=== PATIENT | female | born 1950 | race Asian ===

== ENCOUNTER 2019-06-16 15:34 | Emergency (ER) | payer MEDICARE, OTHER, SELFPAY ==
[2019-06-16 15:42] VITALS: BP 154/93; PULSE 71; RESP 18; TEMP 36.8; O2SAT 100
--- NOTE | 2019-06-16 15:55 | DI.RAD.S_ITS ---
PROCEDURE: XR ELBOW RT MIN 3V INDICATIONS: fall, struck left face and left side of head TECHNIQUE: 3 views of the elbow were acquired. COMPARISON: None. FINDINGS: Bones: No displaced fractures or dislocations. No suspicious bony lesions. [id number] degenerative changes of the elbow joint are present. Soft tissues: No elbow joint effusion. No suspicious soft tissue calcifications. IMPRESSION: No displaced right elbow fractures. Dictated by: Hernan Martinez M.D. on 06/16/2019 at 16:01 Approved by: Hernan Martinez M.D. on 06/16/2019 at 16:03
--- NOTE | 2019-06-16 15:55 | DI.RAD.S_ITS ---
PROCEDURE: XR HAND LT MIN 3V INDICATIONS: fall, struck left face and left side of head TECHNIQUE: 3 views of the hand(s) acquired. COMPARISON: None. FINDINGS: Bones: No displaced fractures or dislocations are identified. There are moderate to severe degenerative changes of the small joints (metacarpophalangeal and interphalangeal joints). No suspicious osseous lesions are identified. Soft tissues: Scattered calcifications along the dorsal margins of a few of the proximal interphalangeal joints and metacarpophalangeal joints are present. Soft tissue swelling about several joints of the hand are present. There is a rounded ossific/calcific density along the volar aspect of the hand underlying the 4th metacarpal base. IMPRESSION: 1. No displaced left hand fractures. 2. Soft tissue swelling of the hand. 3. Rounded ossific/calcific density on the volar aspect of the 4th metacarpal base may represent a foreign body. Please correlate clinically. 4. Prominent degenerative changes of the hand with associated scattered areas of chondrocalcinosis. Dictated by: Hernan Martinez M.D. on 06/16/2019 at 15:57 Approved by: Hernan Martinez M.D. on 06/16/2019 at 15:59
--- NOTE | 2019-06-16 15:55 | DI.RAD.S_ITS ---
PROCEDURE: XR WRIST LT MIN 3V INDICATIONS: fall, struck left face and left side of head TECHNIQUE: 4 views of the wrist were acquired. COMPARISON: None. FINDINGS: Bones: No displaced fractures or dislocations of the left wrist are identified. No suspicious osseous lesions are present. There is mild ulnar positive variance with moderate degenerative changes of the distal radial ulnar joint. There also are moderate degenerative changes noted involving the basal joint of the thumb and at the metacarpal phalangeal joints. Subtle soft tissue calcifications about some of these joints probably is related to chondrocalcinosis or chronic degenerative change. Soft tissues: No suspicious soft tissue calcifications. Soft tissue swelling about the metacarpophalangeal joints and about the wrist is present. There is a rounded ossific/calcific density on the volar aspect of the hand that is positioned at the level of the base of the 4th metacarpal, which could potentially represent a foreign body. IMPRESSION: 1. No displaced acute left wrist fractures. 2. [id number]-[id number] degenerative changes of the wrist. 3. Rounded ossific/calcific density along the volar aspect of the base of the 4th metacarpal may represent a foreign body. Please correlate clinically. Dictated by: Hernan Martinez M.D. on 06/16/2019 at 15:55 Approved by: Hernan Martinez M.D. on 06/16/2019 at 15:57
--- NOTE | 2019-06-16 15:55 | DI.CT.S_ITS ---
PROCEDURE: CT FACIAL BONES WO CON INDICATIONS: fall, struck left face and left side of head TECHNIQUE: Noncontrast 2.5 mm thick axial images acquired from the mandible through the frontal sinuses, with coronal and sagittal reformatting. For radiation dose reduction, the following was used: automated exposure control, adjustment of mA and/or kV according to patient size. COMPARISON: [facility], CT, CT CERVICAL SPINE WO CON, 06/16/2019, 15:59. FINDINGS: Image quality: Excellent. Bones and teeth: Orbital benavides are intact. Sinus benavides show no fracture or deformity. Nasal bones and septum are intact. Visualized portions of the mandible demonstrate no fractures or subluxation. Zygomatic arches are intact. Pterygoid plates are intact. Visualized portions of the skull base and auditory canals are intact. Severe bilateral TMJ degenerative change. No upper teeth present. Metallic artifact makes it difficult to evaluate the lower tooth structures. As is reported in the cervical spine CT, there is marked cervical bony canal stenosis. Sinuses: Paranasal sinuses are aerated, without fluid levels, mucosal thickening, or mucoceles. Mastoid air cells are aerated. Soft tissues: No edema, masses, or fluid collections. No enlarged lymph nodes. No soft tissue lacerations or debris. Vascular: Visualized vascular structures appear normal in the absence of contrast. Bony vascular foramina and canals are intact. IMPRESSION: 1. No displaced facial bone fracture or mandibular fracture. 2. Severe bilateral TMJ degenerative change. 3. Marked cervical canal stenosis. Please refer to a separate CT cervical spine report. Dictated by: Tadeo Lopez M.D. on 06/16/2019 at 16:42 Approved by: Tadeo Lpoez M.D. on 06/16/2019 at 16:46
--- NOTE | 2019-06-16 15:55 | DI.CT.S_ITS ---
PROCEDURE: CT HEAD/BRAIN WO CON INDICATIONS: fall, struck left face and left side of head TECHNIQUE: Noncontrast 4.5 mm thick angled axial sections acquired from the foramen magnum to the vertex, with coronal and sagittal reformats. For radiation dose reduction, the following was used: automated exposure control, adjustment of mA and/or kV according to patient size. COMPARISON: None. FINDINGS: Image quality: Excellent. CSF spaces: Basal cisterns are patent. No extra-axial fluid collections. Ventricles are normal in size and shape. Brain: No midline shift. No intracranial masses or hemorrhage. Corral-white matter interface is normal. Skull and face: Calvarium and visualized facial bones are intact, without suspicious lesions. Sinuses: Visualized sinuses and mastoids are clear. IMPRESSION: Negative for acute stroke, hemorrhage, or mass. No evidence of significant intracranial sequelae of acute trauma. Dictated by: Tadeo Lopez M.D. on 06/16/2019 at 16:16 Approved by: Tadeo Lopez M.D. on 06/16/2019 at 16:17
--- NOTE | 2019-06-16 15:55 | DI.RAD.S_ITS ---
PROCEDURE: XR WRIST RT MIN 3V INDICATIONS: fall, struck left face and left side of head TECHNIQUE: 3 views of the wrist were acquired. COMPARISON: None. FINDINGS: Bones: No displaced fractures or dislocations are identified involving the osseous structures of the right wrist. There are severe degenerative changes of the distal radial ulnar joint with moderate ulnar positive variance. Slight increased density of the lunate appears to be present. There are moderate degenerative changes involving the joints of the thumb and the other metacarpophalangeal joints. Soft tissue calcifications along the dorsal margins of several interphalangeal joints are present. Soft tissues: No suspicious soft tissue calcifications. Mild soft tissue swelling about the metacarpal phalangeal and interphalangeal joints of the right hand are noted. No radio opaque foreign bodies. IMPRESSION: 1. No displaced acute right wrist fractures. 2. Moderate to severe degenerative changes of the wrist. 3. Ulnar positive variance with possible adjacent lunate sclerosis. Please correlate clinically to exclude the possibility of Kienbocks disease. MRI would be helpful for better characterization, which may be performed on an outpatient basis. Dictated by: Hernan Martinez M.D. on 06/16/2019 at 15:52 Approved by: Hernan Martinez M.D. on 06/16/2019 at 15:55
--- NOTE | 2019-06-16 15:55 | DI.CT.S_ITS ---
PROCEDURE: CT CERVICAL SPINE WO CON INDICATIONS: fall, struck left face and left side of head TECHNIQUE: Noncontrast 3 mm thick sections acquired from the skull base to the T4 level. Sagittal and coronal reformats were then constructed. For radiation dose reduction, the following was used: automated exposure control, adjustment of mA and/or kV according to patient size. COMPARISON: None. FINDINGS: Image quality: Excellent. Bones: No fractures or dislocations. There is ossification of the posterior longitudinal ligament, with extensive canal osteophytes, eccentric to the right, with marked central canal stenosis at C4-C5 and C5-C6, with marked impingement on the cord. There is also severe stenosis of the right hemicanal at C3-C4. There is severe bony foraminal stenosis bilaterally and C5-C6 and C6-C7. Visualized superior ribs are intact. Soft tissues: Prevertebral soft tissues are normal in thickness. No paravertebral hematomas. No apical pneumothoraces. Heterotopic ossification posterior to C5-C6 spinous processes is consistent with remote trauma. IMPRESSION: 1. No evidence acute cervical fracture or dislocation. 2. Extensive osteophytes in the central canal, consistent with ossification of posterior longitudinal ligament,, eccentric to the right, results in marked canal stenosis at C4-C5 and C5-C6. There is also severe stenosis of the right hemicanal at C3-C4 Comment: Findings were discussed with TANYA Ortega, at the time of study dictation on 06/16/19 at 1626 hrs.. Dictated by: Tadeo Lopez M.D. on 06/16/2019 at 16:17 Approved by: Tadeo Lopez M.D. on 06/16/2019 at 16:26
[2019-06-16] MEDS: ACETAMINOPHEN 325 MG TABLET 650 MG PO (16:02)
--- NOTE | 2019-06-16 17:17 | ED_ITS ---
HPI - Fall General Chief Complaint: Fall Stated Complaint: GLF, multiple injury complaints Time Seen by Provider: 06/16/19 17:14 Source: patient and family Mode of arrival: Wheelchair History of Present Illness HPI Narrative: Patient is a 68-year-old female who presents after ground level fall. She tripped and fell landing with hands out in front of her onto her face. No loss of consciousness she is not on blood thinners. She does have some numbness and tingling down her hand is worse than what it normally is she does have some. She has an abrasion on the left side of her face as well. She is ambulatory no other injuries. She denies any nausea or vomiting. MD complaint: fall Fall from: standing Fall witnessed: no Place fall occurred: home Loss of consciousness: none Related Data Home Medications Medication Instructions Recorded Confirmed levothyroxine [Synthroid] 25 mcg PO DAILY #0 09/11/11 06/16/19 losartan [Cozaar] 25 mg PO DAILY #0 09/11/11 06/16/19 metformin 500 mg PO BID #0 09/11/11 06/16/19 simvastatin 1 tab PO QPM #0 09/11/11 06/16/19 metoprolol tartrate 25 mg PO DAILY #0 09/14/11 06/16/19 Co Q-10 1 cap PO DAILY 06/16/19 06/16/19 fenofibrate 1 tab PO DAILY 06/16/19 06/16/19 turmeric 1 tab PO DAILY 06/16/19 06/16/19 Previous Rx's Medication Instructions Recorded tramadol 50 mg PO Q6H PRN #10 tab 06/16/19 Allergies Allergy/AdvReac Type Severity Reaction Status Date / Time No Known Drug Allergies Allergy Verified 06/16/19 15:47 Review of Systems Review of Systems Narrative: GENERAL: Denies chills, fatigue, malaise, fever, sweats, travel HEENT: Denies sinus pain, ear pain, sore throat, difficulty swallowing, neck pain RESPIRATORY: Denies dyspnea, cough, wheezing, hemoptysis, sputum. CARDIOVASCULAR: Denies chest pain, palpitations, orthopnea, edema GASTROINTESTINAL: Denies nausea, vomiting, abdominal pain, diarrhea, constipation, melena. : Denies dysuria, frequency, incontinence, hematuria, urinary retention, flank pain. MUSCULOSKELETAL: Bilateral wrist pain, elbow pain SKIN: Facial abrasion left side NEUROLOGIC: + head injury no LOC Denies weakness, dizziness, headache, numbness, change in speech, confusion PSYCHIATRIC: No concerning psychosocial issues. 12 point review of systems is negative except for those stated above and HPI Patient History Medical History Hyperlipidemia (Acute) Hypertension (Acute) Social History Smoking Status: Never smoker Smoking Status: Never smoker alcohol intake frequency: 0-2 drinks per day Substance Use Type: does not use Exam Initial Vital Signs Initial Vital Signs: Vital Signs Temperature 98.3 F 06/16/19 15:42 Pulse Rate 71 06/16/19 15:42 Respiratory Rate 18 06/16/19 15:42 Blood Pressure 154/93 H 06/16/19 15:42 Pulse Oximetry 100 06/16/19 15:42 GENERAL: Well-appearing, well-nourished and in no acute distress. HEENT: Head atraumatic,EOMI, pupils reactive, face symmetric facial swelling noted on the left with contusion/abrasion NECK: C-collar in place vertebral tenderness CARDIOVASCULAR: Regular rate and rhythm without murmurs, rubs or gallops. RESPIRATORY: Breath sounds equal bilaterally, no wheezes rales or rhonchi. ABDOMEN: Soft, nontender. Normoactive bowel sounds all 4 quadrants. No guarding or rebound. BACK: No vertebral tenderness no step-offs no sign of trauma EXTREMITIES: Normal range of motion, no clubbing or edema. Neurovascularly intact Good distal radial pulses bilaterally no obvious wrist deformity right elbow is tender to touch but no obvious deformity NEUROLOGICAL: Alert and oriented x4.Normal gait and speech. Cranial nerves II through XII grossly intact. Center Manager strength equal bilaterally SKIN: Warm, dry, no laceration, no petechiae, no rashes or lesions. Course Orders Ordered: ED Orders 06/16/19 15:55 CT cervical spine wo con Stat CT facial bones wo con Stat CT head/brain wo con Stat XR elbow RT min 3V Stat XR hand LT min 3V Stat XR wrist LT min 3V Stat XR wrist RT min 3V Stat Discontinued Medications Acetaminophen (Tylenol) 650 mg PO NOW ONE Stop: 06/16/19 15:56 Last Admin: 06/16/19 16:02 Dose: 650 mg Documented by: LEON Ketorolac Tromethamine (Toradol) 30 mg IM NOW ONE Stop: 06/16/19 17:25 Last Admin: 06/16/19 17:38 Dose: 30 mg Documented by: LEON Vital Signs Vital signs: Vital Signs - 8 hr 06/16/19 15:42 Temperature 98.3 F Pulse Rate 71 Respiratory Rate 18 Blood Pressure 154/93 H Pulse Oximetry 100 MDM - Fall Imaging Data CT scan - head: Radiologist's Impression: PROCEDURE: CT HEAD/BRAIN WO CON INDICATIONS: fall, struck left face and left side of head TECHNIQUE: Noncontrast 4.5 mm thick angled axial sections acquired from the foramen magnum to the vertex, with coronal and sagittal reformats. For radiation dose reduction, the following was used: automated exposure control, adjustment of mA and/or kV according to patient size. COMPARISON: None. FINDINGS: Image quality: Excellent. CSF spaces: Basal cisterns are patent. No extra-axial fluid collections. Ventricles are normal in size and shape. Brain: No midline shift. No intracranial masses or hemorrhage. Corral-white matter interface is normal. Skull and face: Calvarium and visualized facial bones are intact, without suspicious lesions. Sinuses: Visualized sinuses and mastoids are clear. IMPRESSION: Negative for acute stroke, hemorrhage, or mass. No evidence of significant intracranial sequelae of acute trauma. Dictated by: Tadeo Lopez M.D. on 06/16/2019 at 16:16 CT - cervical spine: Radiologist's Impression: PROCEDURE: CT CERVICAL SPINE WO CON INDICATIONS: fall, struck left face and left side of head TECHNIQUE: Noncontrast 3 mm thick sections acquired from the skull base to the T4 level. Sagittal and coronal reformats were then constructed. For radiation dose reduction, the following was used: automated exposure control, adjustment of mA and/or kV according to patient size. COMPARISON: None. FINDINGS: Image quality: Excellent. Bones: No fractures or dislocations. There is ossification of the posterior longitudinal ligament, with extensive canal osteophytes, eccentric to the right, with marked central canal stenosis at C4-C5 and C5-C6, with marked impingement on the cord. There is also severe stenosis of the right hemicanal at C3-C4. There is severe bony foraminal stenosis bilaterally and C5-C6 and C6-C7. Visualized superior ribs are intact. Soft tissues: Prevertebral soft tissues are normal in thickness. No paravertebral hematomas. No apical pneumothoraces. Heterotopic ossification posterior to C5-C6 spinous processes is consistent with remote trauma. IMPRESSION: 1. No evidence acute cervical fracture or dislocation. 2. Extensive osteophytes in the central canal, consistent with ossification of posterior longitudinal ligament,, eccentric to the right, results in marked canal stenosis at C4-C5 and C5-C6. There is also severe stenosis of the right hemicanal at C3-C4 Comment: Findings were discussed with TANYA Ortega, at the time of study dictation on 06/16/19 at 1626 hrs.. Dictated by: Tadeo Lopez M.D. on 06/16/2019 at 16:17 Extremity x-ray #1: Radiologist's Impression: PROCEDURE: XR ELBOW RT MIN 3V INDICATIONS: fall, struck left face and left side of head TECHNIQUE: 3 views of the elbow were acquired. COMPARISON: None. FINDINGS: Bones: No displaced fractures or dislocations. No suspicious bony lesions. [id number] degenerative changes of the elbow joint are present. Soft tissues: No elbow joint effusion. No suspicious soft tissue calcifications. IMPRESSION: No displaced right elbow fractures. Dictated by: Hernan Martinez M.D. on 06/16/2019 at 16:01 Extremity x-ray #2: Radiologist's Impression: PROCEDURE: XR WRIST RT MIN 3V INDICATIONS: fall, struck left face and left side of head TECHNIQUE: 3 views of the wrist were acquired. COMPARISON: None. FINDINGS: Bones: No displaced fractures or dislocations are identified involving the osseous structures of the right wrist. There are severe degenerative changes of the distal radial ulnar joint with moderate ulnar positive variance. Slight increased density of the lunate appears to be present. There are moderate degenerative changes involving the joints of the thumb and the other metacarpophalangeal joints. Soft tissue calcifications along the dorsal margins of several interphalangeal joints are present. Soft tissues: No suspicious soft tissue calcifications. Mild soft tissue swelling about the metacarpal phalangeal and interphalangeal joints of the right hand are noted. No radio opaque foreign bodies. IMPRESSION: 1. No displaced acute right wrist fractures. 2. Moderate to severe degenerative changes of the wrist. 3. Ulnar positive variance with possible adjacent lunate sclerosis. Please correlate clinically to exclude the possibility of Kienbocks disease. MRI would be helpful for better characterization, which may be performed on an outpatient basis. Dictated by: Hernan Martinez M.D. on 06/16/2019 at 15:52 Extremity x-ray #3: Radiologist's Impression: PROCEDURE: XR WRIST LT MIN 3V INDICATIONS: fall, struck left face and left side of head TECHNIQUE: 4 views of the wrist were acquired. COMPARISON: None. FINDINGS: Bones: No displaced fractures or dislocations of the left wrist are identified. No suspicious osseous lesions are present. There is mild ulnar positive variance with moderate degenerative changes of the distal radial ulnar joint. There also are moderate degenerative changes noted involving the basal joint of the thumb and at the metacarpal phalangeal joints. Subtle soft tissue calcifications about some of these joints probably is related to chondrocalcinosis or chronic degenerative change. Soft tissues: No suspicious soft tissue calcifications. Soft tissue swelling about the metacarpophalangeal joints and about the wrist is present. There is a rounded ossific/calcific density on the volar aspect of the hand that is positioned at the level of the base of the 4th metacarpal, which could potentially represent a foreign body. IMPRESSION: 1. No displaced acute left wrist fractures. 2. [id number] degenerative changes of the wrist. 3. Rounded ossific/calcific density along the volar aspect of the base of the 4th metacarpal may represent a foreign body. Please correlate clinically. Dictated by: Hernan Martinez M.D. on 06/16/2019 at 15:55 CT FACE: Radiologist's Impression: PROCEDURE: CT FACIAL BONES WO CON INDICATIONS: fall, struck left face and left side of head TECHNIQUE: Noncontrast 2.5 mm thick axial images acquired from the mandible through the frontal sinuses, with coronal and sagittal reformatting. For radiation dose reduction, the following was used: automated exposure control, adjustment of mA and/or kV according to patient size. COMPARISON: [facility], CT, CT CERVICAL SPINE WO CON, 06/16/2019, 15:59. FINDINGS: Image quality: Excellent. Bones and teeth: Orbital benavides are intact. Sinus benavides show no fracture or deformity. Nasal bones and septum are intact. Visualized portions of the mandible demonstrate no fractures or subluxation. Zygomatic arches are intact. Pterygoid plates are intact. Visualized portions of the skull base and auditory canals are intact. Severe bilateral TMJ degenerative change. No upper teeth present. Metallic artifact makes it difficult to evaluate the lower tooth structures. As is reported in the cervical spine CT, there is marked cervical bony canal stenosis. Sinuses: Paranasal sinuses are aerated, without fluid levels, mucosal thickening, or mucoceles. Mastoid air cells are aerated. Soft tissues: No edema, masses, or fluid collections. No enlarged lymph nodes. No soft tissue lacerations or debris. Vascular: Visualized vascular structures appear normal in the absence of c ontrast. Bony vascular foramina and canals are intact. IMPRESSION: 1. No displaced facial bone fracture or mandibular fracture. 2. Severe bilateral TMJ degenerative change. 3. Marked cervical canal stenosis. Please refer to a separate CT cervical spine report. Dictated by: Tadeo Lopez M.D. on 06/16/2019 at 16:42 hand left: Radiologist's Impression: PROCEDURE: XR HAND LT MIN 3V INDICATIONS: fall, struck left face and left side of head TECHNIQUE: 3 views of the hand(s) acquired. COMPARISON: None. FINDINGS: Bones: No displaced fractures or dislocations are identified. There are moderate to severe degenerative changes of the small joints (metacarpophalangeal and interphalangeal joints). No suspicious osseous lesions are identified. Soft tissues: Scattered calcifications along the dorsal margins of a few of the proximal interphalangeal joints and metacarpophalangeal joints are present. Soft tissue swelling about several joints of the hand are present. There is a rounded ossific/calcific density along the volar aspect of the hand underlying the 4th metacarpal base. IMPRESSION: 1. No displaced left hand fractures. 2. Soft tissue swelling of the hand. 3. Rounded ossific/calcific density on the volar aspect of the 4th metacarpal base may represent a foreign body. Please correlate clinically. 4. Prominent degenerative changes of the hand with associated scattered areas of chondrocalcinosis. Dictated by: Hernan Martinez M.D. on 06/16/2019 at 15:57 MDM Narrative Medical decision making narrative: Patient is given Tylenol and Toradol for pain. It sounds as though she has some neuropathy in her upper extremities which have gotten worse since she fell. She is noted to have significant spinal stenosis on her CT but no weakness. I have discussed with her and family possible physical therapy along with chronic possible surgery however at this time recommend follow-up with PCP. Discharge Plan Departure Patient Disposition: Home Clinical Impression: Spinal stenosis Qualifiers: Spinal region: cervical Qualified Code(s): M48.02 - Spinal stenosis, cervical region Abrasion of face Qualifiers: Encounter type: initial encounter Qualified Code(s): S00.81XA - Abrasion of other part of head, initial encounter Instructions: Spinal Stenosis Activity Restrictions/Additional Instructions: *You have been diagnosed with fall, spinal stenosis, facial abrasion *What to do: The numbness and tingling her feeling in your arms is related to spinal stenosis and is nerve pain. This may take time to go away you may actually require surgery. The stenosis is not from the fall it is something that you have had. *Continue to take medications as directed Tramadol 0.5- 1 tablet every 6 hours if needed for severe pain. This can cause drowsiness *Follow up with your primary care provider in 2-3 days *Return to ER if you should have increasing weakness numbness tingling, or any new, worsening or concerning symptoms CONTROLLED SUBSTANCE DISCHARGE (Narcotoic/benzodiazepine/Flexeril/Phenergan) 1. You have been prescribed narcotic medications, it does have acetaminophen/Tylenol/paracetamol in it so do not take extra Tylenol or Tylenol containing products -TRAMADOL DOES NOT CONTAIN TYLENOL, IT IS OKAY TO TAKE TYLENOL WITH TRAMADOL 2. Please understand that we cannot provide further refills of narcotics, benzodiazepines or controlled substances through the ED and her pain management will need to be through your provider. 3. While on these medications you cannot drive or operate heavy machinery. 4. You cannot sign legal documents or perform any duties such as this. 5. As long as you're taking opiate pain medications he should also be taking a stool softener such as Colace, Dulcolax, MiraLAX or prune juice, to help avoid constipation. Prescriptions: New tramadol 50 mg tablet 50 mg PO Q6H PRN (Reason: pain) Qty: 10 RF: 0 No Action metformin 500 mg Tablet 500 mg PO BID Qty: 0 RF: 0 levothyroxine [Synthroid] 25 mcg Tablet 25 mcg PO DAILY Qty: 0 RF: 0 losartan [Cozaar] 25 MG tablet 25 mg PO DAILY Qty: 0 RF: 0 simvastatin 1 tab PO QPM Qty: 0 RF: 0 metoprolol tartrate 25 MG tablet 25 mg PO DAILY Qty: 0 RF: 0 Co Q-10 1 cap PO DAILY RF: 0 fenofibrate 1 tab PO DAILY RF: 0 turmeric 1 tab PO DAILY RF: 0 Referrals: Serge Engel MD [Family Provider] -
[2019-06-16] MEDS: KETOROLAC 60 MG/2 ML VIAL 30 MG IM (17:38)
[2019-06-16 18:14] VITALS: BP 151/92; PULSE 63; O2SAT 97
== END 2019-06-16 18:15 | disposition home or self-care (01) ==
PROVIDERS: Emergency Provider Emergency Medicine; Family Provider Family Medicine
DX: M48.02 Spinal stenosis, cervical region (principal); S00.81XA Abrasion of other part of head, initial encounter; M25.532 Pain in left wrist; M25.531 Pain in right wrist; W01.0XXA Fall on same level from slipping, tripping and stumbling without subsequent striking against object, initial encounter
CPT/HCPCS: 70450; 70486; 72125; 73080; 73110; 73130; 96372; 99284; J1885